=== PATIENT | female | born 1975 | race Caucasian/White ===

== ENCOUNTER 2017-04-23 13:11 | Emergency (ER) | payer SELFPAY ==
[2017-04-23 13:23] VITALS: BP 184/98
--- NOTE | 2017-04-23 15:02 | ER Document Report ---
ED Medical Screen (RME) - General Chief Complaint: Leg Pain Stated Complaint: RIGHT LEG PAIN Time Seen by Provider: 04/23/17 14:40 Mode of Arrival: Ambulatory Information source: Patient Notes: This is a 41-year-old female with right calf discomfort for the past 2 days. No history of trauma. She noticed veins on her calf and her friend told her this could be signs of a blood clot so she decided to come to the ER. She denies any fevers or chills. No systemic symptoms. No chest pain or shortness of breath. No prior history of thromboembolic disease. I have greeted and performed a rapid initial assessment of this patient. A comprehensive ED assessment and evaluation of the patient, analysis of test results and completion of the medical decision making process will be conducted by additional ED providers. TRAVEL OUTSIDE OF THE [place] IN LAST 30 DAYS: No - Related Data Allergies/Adverse Reactions: promethazine HCl [From Phenergan] Allergy (Verified 04/23/17 14:19) acetaminophen [From Tylenol] Adverse Reaction (Verified 04/23/17 14:19) upset stomach Past Medical History Endocrine Medical History: Reports: Hx Hypothyroidism Renal/ Medical History: Denies: Hx Peritoneal Dialysis Past Surgical History: Reports: Hx Appendectomy, Hx Breast Surgery, Hx Gynecologic Surgery - breast augmentation - Immunizations Hx Diphtheria, Pertussis, Tetanus Vaccination: Yes Physical Exam - Vital signs Vitals: Temp Pulse Resp BP Pulse Ox 98.5 F 73 18 184/98 H 99 04/23/17 13:22 04/23/17 13:22 04/23/17 13:22 04/23/17 13:22 04/23/17 13:22 Course - Vital Signs Vital signs: Temp Pulse Resp BP Pulse Ox 98.5 F 73 18 184/98 H 99 04/23/17 13:22 04/23/17 13:22 04/23/17 13:22 04/23/17 13:22 04/23/17 13:22
--- NOTE | 2017-04-23 18:57 | ER Document Report ---
ED Extremity Problem, Lower - General Chief Complaint: Leg Pain Stated Complaint: RIGHT LEG PAIN Time Seen by Provider: 04/23/17 14:40 Mode of Arrival: Ambulatory Information source: Patient Notes: 31-year-old female presents to ED for pain in the right calf for the last 2 days. She has what appears to be varicose veins to the right calf. She states that a friend told her that she should get checked that looked like for blood clot. She was seen in pit by Dr. Be and a venous Doppler was ordered and run. Patient does not have any risk factors for blood clots except for smoking. TRAVEL OUTSIDE OF THE [place] IN LAST 30 DAYS: No - HPI Patient complains to provider of: Pain Location: Leg Occurred: Other - 2 days Onset/Duration: Gradual Quality of pain: Burning Severity: Moderate Pain Level: 4 Recent injury: No Associated symptoms: Painful ambulation Exacerbated by: Nothing Relieved by: Nothing - Related Data Allergies/Adverse Reactions: promethazine HCl [From Phenergan] Allergy (Verified 04/23/17 14:19) acetaminophen [From Tylenol] Adverse Reaction (Verified 04/23/17 14:19) upset stomach Past Medical History - General Information source: Patient - Social History Smoking Status: Current Every Day Smoker Cigarette use (# per day): Yes - Pack per day Chew tobacco use (# tins/day): No Smoking Education Provided: Yes - Less than 2 minutes Frequency of alcohol use: Social Drug Abuse: None Occupation: None Lives with: Friend Family History: Arthritis, CAD, Hyperlipidemia, Hypertension, Thyroid Disfunction Patient has suicidal ideation: No Patient has homicidal ideation: No - Past Medical History Cardiac Medical History: Reports: None Pulmonary Medical History: Reports: Hx Asthma EENT Medical History: Reports: None Neurological Medical History: Reports: None Endocrine Medical History: Reports: Hx Hypothyroidism Renal/ Medical History: Reports: None Malignancy Medical History: Reports: None GI Medical History: Reports: None Musculoskeltal Medical History: Reports Hx Arthritis, Reports Hx Musculoskeletal Deformity, Reports Hx Musculoskeletal Trauma Skin Medical History: Reports None Psychiatric Medical History: Reports: None Traumatic Medical History: Reports: Hx Fractures - Spine pelvic and arm and leg , Hx Spine Fracture Infectious Medical History: Reports: None Past Surgical History: Reports: Hx Appendectomy, Hx Breast Surgery - Documentation, Hx Gynecologic Surgery - breast augmentation, Hx Orthopedic Surgery - Neck fusion lumbar area - Immunizations Hx Diphtheria, Pertussis, Tetanus Vaccination: Yes Hx Pneumococcal Vaccination: 08/11/13 Review of Systems - Review of Systems Constitutional: No symptoms reported EENT: No symptoms reported Cardiovascular: No symptoms reported Respiratory: No symptoms reported Gastrointestinal: No symptoms reported Genitourinary: No symptoms reported Female Genitourinary: No symptoms reported Musculoskeletal: Other - What appears to be varicose veins in the right calf Skin: Other - Engorged veins to the right calf Hematologic/Lymphatic: No symptoms reported Neurological/Psychological: No symptoms reported -: Yes All other systems reviewed and negative Physical Exam - Vital signs Vitals: Temp Pulse Resp BP Pulse Ox 98.5 F 73 18 184/98 H 99 04/23/17 13:22 04/23/17 13:22 04/23/17 13:22 04/23/17 13:22 04/23/17 13:22 Interpretation: Normal - General General appearance: Appears well, Alert - HEENT Head: Normocephalic, Atraumatic Eyes: Normal Pupils: PERRL - Respiratory Respiratory status: No respiratory distress Chest status: Nontender Breath sounds: Normal Chest palpation: Normal - Cardiovascular Rhythm: Regular Heart sounds: Normal auscultation Murmur: No - Abdominal Inspection: Normal Distension: No distension Bowel sounds: Normal Tenderness: Nontender Organomegaly: No organomegaly - Back Back: Normal, Nontender - Extremities General upper extremity: Normal inspection, Nontender, Normal color, Normal ROM , Normal temperature General lower extremity: Normal color, Normal ROM, Normal temperature, Normal weight bearing. No: Paul's sign Calf: Tender - Enlarged veins Ankle: Normal Foot: Normal - Neurological Neuro grossly intact: Yes Cognition: Normal Orientation: AAOx4 [place] Coma Scale Eye Opening: Spontaneous [place] Coma Scale Verbal: Oriented [place] Coma Scale Motor: Obeys Commands Mus[place] Coma Scale Total: 15 Speech: Normal Motor strength normal: LUE, RUE, LLE, RLE Sensory: Normal - Psychological Associated symptoms: Normal affect, Normal mood - Skin Skin Temperature: Warm Skin Moisture: Dry Skin Color: Normal Course - Re-evaluation Re-evalutation: 04/23/17 22:25 Patient needed to leave before her Doppler was read, the report was called to her at her home. - Vital Signs Vital signs: Temp Pulse Resp BP Pulse Ox 98.5 F 73 18 184/98 H 99 04/23/17 13:22 04/23/17 13:22 04/23/17 13:22 04/23/17 13:22 04/23/17 13:22 - Diagnostic Test Radiology reviewed: Image reviewed, Reports reviewed Discharge - Discharge Clinical Impression: Right calf pain, varicose veins right calf Condition: Stable Disposition: HOME, SELF-CARE Additional Instructions: He was seen today for pain and swelling to your right calf. Which you have look to be varicose veins. You had a venous Doppler but I have not gotten the reading yet. If you I will call you results as soon as I get them if you give me a phone number. Cool compresses and ibuprofen and compression stockings will help your pain. FOLLOW-UP CARE: If you have been referred to a physician for follow-up care, call the physician s office for an appointment as you were instructed or within the next two days. If you experience worsening or a significant change in your symptoms, notify the physician immediately or return to the Emergency Department at any time for re-evaluation. Referrals: LUIS CULLEN MD [Primary Care Provider] - Follow up as needed
--- NOTE | 2017-04-24 08:40 | XCELERA REPORT ---
[address] [address] Lower Extremity Venous Evaluation Name: CALISTA SLADE Age: 41 yrs Gender: Female : 1975 Patient Status: Emergency Patient Location: ER Study Date: 04/23/2017 03:14 PM Procedure: Color flow and duplex imaging of the veins of the right lower extremity as well as the left Common Femoral vein. Reason For Study: right calf pain Ordering Physician: FAYE MORALES Performed By: Megan Rodirgues Right Sided Venous Evaluation Normal vessel filling wall to wall, compression and augmentation as well as Colour flow down to the infrageniculate veins. Left Sided Venous Evaluation The left common femoral vein is fully compressible. Spontaneous and phasic flow is present in the left common femoral vein. Critical Findings Called in to ALEXANDRA Baker. Interpretation Summary No duplex evidence of DVT or obstruction in the right lower extremity nor in the left Common Femoral vein. : FAYE MORALES > Enoc Tellez
== END 2017-04-23 19:00 | disposition home or self-care (01) ==
LOC: ER 13:11
DX: I83.811 Varicose veins of right lower extremity with pain (principal); J45.909 Unspecified asthma, uncomplicated; F17.210 Nicotine dependence, cigarettes, uncomplicated; Z71.6 Tobacco abuse counseling; Z88.8 Allergy status to other drugs, medicaments and biological substances
CPT/HCPCS: 93971; 99283

== ENCOUNTER 2017-10-12 11:21 | Emergency (ER) | payer SELFPAY ==
[2017-10-12] MEDS ORDERED: NORMAL SALINE 1000 ML 1,000 ML IV ONE (11:33)
--- NOTE | 2017-10-12 11:53 | ER Document Report ---
ED General - General Stated Complaint: BLOOD PRESSURE ISSUE Time Seen by Provider: 10/12/17 11:32 TRAVEL OUTSIDE OF THE [place] IN LAST 30 DAYS: No - HPI Notes: Patient is a 42-year-old female with a history of hypoglycemia who presents the ED by EMS complaining of a hypoglycemic episode including a possible associated seizure that was witnessed by her boyfriend who is not currently in the ED. EMS stated that the boyfriend saw her clench up and have pedrito during the hypoglycemic evente shakes. EMS arrived and provided oral glucose and were able to get her sugar up to 83. Patient states that her sugar was down to around 39. Patient states that she does not remember the event at all until she woke up and so EMS there. Patient states that she did have a lingering headache, but that has since resolved. Patient does have a history of migraines. Patient states that she had a similar episode about a month ago and was evaluated by her PCM 3 weeks ago, but they just told her to continue checking her sugars and take Glucose if he gets too low. Patient states that she is feeling well overall right now. Patient denies having ever been worked up for possible seizure. She has no other concerns or complaints at this time. Patient admits to smoking but denies any IV drug use. Patient states that she did drink alcohol last night. Denies any fever, head injury, neck pain, changes in vision/speech/mentation/hearing, URI, sore throat, chest pain, palpitations, syncope, cough, shortness of breath, wheeze, dyspnea, abdominal pain, nausea/vomiting/diarrhea, urinary retention, dysuria, hematuria, loss of control of bowel or bladder, numbness/tingling, saddle anesthesia, muscle paralysis/weakness, or rash. - Related Data Allergies/Adverse Reactions: promethazine HCl [From Phenergan] Allergy (Verified 04/23/17 14:19) acetaminophen [From Tylenol] Adverse Reaction (Verified 04/23/17 14:19) upset stomach Past Medical History - Social History Smoking Status: Current Every Day Smoker Family History: Arthritis, CAD, Hyperlipidemia, Hypertension, Thyroid Disfunction Pulmonary Medical History: Reports: Hx Asthma Endocrine Medical History: Reports: Hx Hypothyroidism Renal/ Medical History: Denies: Hx Peritoneal Dialysis Musculoskeltal Medical History: Reports Hx Arthritis, Reports Hx Musculoskeletal Deformity, Reports Hx Musculoskeletal Trauma Traumatic Medical History: Reports: Hx Fractures - Spine pelvic and arm and leg , Hx Spine Fracture Past Surgical History: Reports: Hx Appendectomy, Hx Breast Surgery - Documentation, Hx Gynecologic Surgery - breast augmentation, Hx Orthopedic Surgery - Neck fusion lumbar area - Immunizations Hx Diphtheria, Pertussis, Tetanus Vaccination: Yes Hx Pneumococcal Vaccination: 08/11/13 Review of Systems - Review of Systems Notes: REVIEW OF SYSTEMS: CONSTITUTIONAL : Denies fever, chills, or sweats. Denies recent illness. EENT: Denies eye, ear, throat, or mouth pain or symptoms. Denies nasal or sinus congestion or discharge. Denies throat, tongue, or mouth swelling or difficulty swallowing. CARDIOVASCULAR: Denies chest pain. Denies palpitations or racing or irregular heart beat. Denies ankle edema. RESPIRATORY: Denies cough, cold, or chest congestion. Denies shortness of breath, difficulty breathing, or wheezing. GASTROINTESTINAL: Denies abdominal pain or distention. Denies nausea, vomiting , or diarrhea. GENITOURINARY: Denies difficulty urinating, painful urination, burning, frequency, blood in urine, or discharge. MUSCULOSKELETAL: Denies back or neck pain or stiffness. Denies joint pain or swelling. SKIN: Denies rash, lesions or sores. NEUROLOGICAL: see hpi. Denies confusion or altered mental status. Denies passing out or loss of consciousness. Denies dizziness or lightheadedness. Denies headache. Denies weakness or paralysis or loss of use of either side. Denies problems with gait or speech. Denies sensory loss, numbness, or tingling. ALL OTHER SYSTEMS REVIEWED AND NEGATIVE. Dictation was performed using [employer] voice recognition software Physical Exam - Vital signs Notes: PHYSICAL EXAMINATION: GENERAL: Well-appearing, well-nourished and in no acute distress. A&Ox4 HEAD: Atraumatic, normocephalic. Non-tender. No reardon sign EYES: Pupils equal round and reactive to light, extraocular movements intact, sclera anicteric, conjunctiva are normal. No raccoon eyes/entrapment ENT: EAC clear b/l. TM's intact b/l without erythema, fluid, or perforation. Nares patent and without discharge. oropharynx clear without exudates. No tonsilar hypertrophy or erythema. Moist mucous membranes. No sinus tenderness. No hemotympanum/CSF discharge. NECK: Normal range of motion, supple without lymphadenopathy. No rigidity. No midline tenderness. Spurling negative. NEXUS negative. LUNGS: Breath sounds clear to auscultation bilaterally and equal. No wheezes rales or rhonchi. HEART: Regular rate and rhythm without murmurs, rubs, gallops. ABDOMEN: Soft, nontender, nondistended abdomen. No guarding, no rebound. No masses appreciated. Normal bowel sounds present. No CVA tenderness bilaterally. Musculoskeletal: Ext b/l: FROM to passive/active. Strength 5+/5. No deficits noted. No bony tenderness of extremities. Back: FROM to passive/active. Strength 5+/5. No vertebral point tenderness, stepoffs, or deformities. No other bony tenderness or ecchymosis. SLR negative b/l. Extremities: No cyanosis, clubbing, or edema b/l. Peripheral pulses 2+. Capillary refill less than 2 seconds. NEUROLOGICAL: NIH 0. MMSE intact. Cranial nerves grossly intact. Normal speech, normal gait. Normal sensory, motor exams. Reflexes 2+ b/l. WARREN's negative. Pronator drift negative. Heel/house, finger/nose wnl. Walking on heels /toes and heel to toe wnl. PSYCH: Normal mood, normal affect. SKIN: Warm, Dry, normal turgor, no rashes or lesions noted. Course - Re-evaluation Re-evalutation: 10/12/17 13:21 Pt states she is feeling better and wants to go home. Reviewed case with Dr. Hyde. Patient is an afebrile, well-hydrated, 42-year-old female who presents the ED with a hypoglycemic event. Vitals are stable. PE is otherwise unremarkable for any focal neurological deficits. CT scan of the head was unremarkable for any acute pathology. CBC, CMP, magn, lipase, unremarkable for any acute pathology. ETOH 270 today which could have added to her hypoglycemia. UA did show + nitrites. Concern for chlamydia/violette. Dirty urine ordered, rocephin/zithromax given today. Recommend conservative measures for symptoms otherwise. [facility] Consider consult with a neurologist/e business manager. Return to the ED with any worsening/concerning symptoms otherwise as reviewed in discharge. Patient is in agreement. - Laboratory Result Diagrams: 10/12/17 12:02 11/19/17 12:02 Laboratory results interpreted by me: 10/12/17 10/12/17 10/12/17 11:50 12:02 12:02 RDW 14.5 H Seg Neutrophils % 29.3 L Lymphocytes % 45.2 H Monocytes % 15.3 H Eosinophils % 9.9 H Absolute Neutrophils 1.4 L Sodium 146.9 H AST 83 H ALT 57 H Total Protein 8.4 H Urine Nitrite POSITIVE H Discharge - Discharge Clinical Impression: Hypoglycemia Elevated ETOH level Qualifiers: Blood alcohol level: 240 mg/100 ml or more Qualified Code(s): Y90.8 - Blood alcohol level of 240 mg/100 ml or more Condition: Stable Disposition: HOME, SELF-CARE Instructions: Hypoglycemia ([facility]) Additional Instructions: Decrease alcohol intake Maintain adequate fluid intake (water) Monitor glucose levels closely Monitor for any acute changes in your symptoms Recheck with the [facility] this week Return to the ED with any worsening symptoms and/or development of fever, headache, changes in mentation/behavior/speech/vision, chest pain, palpitations , syncope, shortness of breath, trouble breathing, abdominal pain, n/v/d, blood in stool/urine, loss of control of bowel/bladder, urinary retention, muscle weakness/paralysis, saddle anesthesia, numbness/tingling, or other worsening symptoms that are concerning to you. Referrals: [facility] [Provider Group] - Follow up in 3-5 days
[2017-10-12 12:23] LABS: APPEARANCE,URINE CLEAR; BILIRUBIN,URINE NEGATIVE (NEGATIVE); GLUCOSE, URINE NEGATIVE (NEGATIVE); KETONES,URINE NEGATIVE (NEGATIVE); LEUKOCYTE ESTERASE,URINE NEGATIVE (NEGATIVE); NITRITE,URINE POSITIVE (NEGATIVE); PROTEIN,URINE NEGATIVE (NEGATIVE); URINE SPECIFIC GRAVITY 1.004; UROBILINOGEN,URINE NEGATIVE mg/dL (<2.0)
[2017-10-12 12:26] LABS: ABSOLUTE EOSINOPHILS # (AUTO) 0.5 10^3/uL (0.0-0.6); ABSOLUTE LYMPHOCYTES (AUTO) 2.1 10^3/uL (0.5-4.7); ABSOLUTE MONOCYTES (AUTO) 0.7 10^3/uL (0.1-1.4); ABSOLUTE NEUT (AUTO) 1.4 10^3/uL (1.7-8.2); BASOPHILS % (AUTO) 0.3 % (0-2); EOSINOPHILS % (AUTO) 9.9 % (0-6); HEMATOCRIT 39.8 % (36.0-47.0); HEMOGLOBIN 13.7 g/dL (12.0-15.5); HGB HCT DIFFERENCE 1.3; LYMPHOCYTES % (AUTO) 45.2 % (13-45); MEAN CORPUSCULAR HEMOGLOBIN 32.2 pg (27.0-33.4); MEAN CORPUSCULAR HGB CONC 34.4 g/dL (32.0-36.0); MEAN CORPUSCULAR VOLUME 94 fl (80-97); MONOCYTES % (AUTO) 15.3 % (3-13); RED BLOOD COUNT 4.25 10^6/uL (3.72-5.28); RED CELL DISTRIBUTION WIDTH 14.5 % (11.5-14.0); SEGMENTED NEUTROPHILS % (AUTO) 29.3 % (42-78); WHITE BLOOD COUNT 4.6 10^3/uL (4.0-10.5)
--- NOTE | 2017-10-12 12:42 | RADIOLOGY REPORT (SQ) ---
EXAM DESCRIPTION: CT HEAD WITHOUT COMPLETED DATE/TIME: 10/12/2017 12:28 pm REASON FOR STUDY: possible seizure COMPARISON: 06/06/2014. TECHNIQUE: Axial images acquired through the brain without intravenous contrast. Images reviewed wi th bone, brain and subdural windows. Images stored on PACS. All CT scanners at this facility use dose modulation, iterative reconstruction, and/or weight based d osing when appropriate to reduce radiation dose to as low as reasonably achievable (ALARA). [facility]: Dose Right [facility]: CareDose [facility]: Dose Right [facility]: Teradose 4D [facility]: Smart Lanyrd RADIATION DOSE: Up-to-date CT equipment and radiation dose reduction techniques were employed. CTDIv ol: 49.0 mGy. DLP: 881 mGy-cm. mGy. LIMITATIONS: None. FINDINGS: VENTRICLES: Normal size and contour. CEREBRUM: No masses. No hemorrhage. No midline shift. No evidence for acute infarction. Normal gra y/white matter differentiation. No areas of low density in the white matter. CEREBELLUM: No masses. No hemorrhage. No alteration of density. No evidence for acute infarction. EXTRAAXIAL SPACES: No fluid collections. No masses. ORBITS AND GLOBE: No intra- or extraconal masses. Normal contour of globe without masses. CALVARIUM: No fracture. PARANASAL SINUSES: No fluid or mucosal thickening. SOFT TISSUES: No mass or hematoma. OTHER: No other significant finding. IMPRESSION: NORMAL BRAIN CT WITHOUT CONTRAST. EVIDENCE OF ACUTE STROKE: NO. COMMENT: Quality ID # [id number]: Final reports with documentation of one or more dose reduction techniques (e.g., Automated exposure control, adjustment of the mA and/or kV according to patient size, use of iterative reconstruction technique) TECHNICAL DOCUMENTATION: JOB ID: [id number] [employer]- All Rights Reserved
[2017-10-12 12:43] LABS: ALANINE AMINOTRANSFERASE 57 U/L (9-52); ALBUMIN 4.5 g/dL (3.5-5.0); ALCOHOL 270 mg/dL (NONE DETECTED); ALKALINE PHOSPHATASE 87 U/L (38-126); ANION GAP 14 (5-19); ASPARTATE AMINO TRANSFERASE 83 U/L (14-36); BILIRUBIN,DIRECT 0.4 mg/dL (0.0-0.4); BILIRUBIN,TOTAL 0.4 mg/dL (0.2-1.3); BLOOD UREA NITROGEN 7 mg/dL (7-20); CALCIUM 9.2 mg/dL (8.4-10.2); CARBON DIOXIDE 29 mmol/L (22-30); CHLORIDE 104 mmol/L (98-107); CREATININE RESULT 0.77 mg/dL (0.52-1.25); GLUCOSE 98 mg/dL (75-110); MAGNESIUM 1.7 mg/dL (1.6-2.3); POTASSIUM 4.2 mmol/L (3.6-5.0); SODIUM 146.9 mmol/L (137-145); TOTAL PROTEIN 8.4 g/dL (6.3-8.2)
[2017-10-12] MEDS ORDERED: AZITHROMYCIN 250 MG TABLET PO ONE (13:20)
[2017-10-12] MEDS ORDERED: CEFTRIAXONE INJ 250 MG VIAL IM ONE ×2 (13:20→13:21)
[2017-10-12] MEDS ORDERED: LIDOCAINE 1% INJ-PF (10 MG/ML) 30 ML SDV INJ ONE ×2 (13:21→13:29)
[2017-10-12] MEDS ORDERED: CEFTRIAXONE INJ 250 MG VIAL IV ONE (13:29)
[2017-10-12 15:24] LABS: CHLAM PCR NOT DETECTED (NOT DETECT)
[2017-10-12 15:35] VITALS: BP 137/95
== END 2017-10-12 15:34 | disposition home or self-care (01) ==
LOC: ER 11:21
DX: E16.2 Hypoglycemia, unspecified (principal); R56.9 Unspecified convulsions; R51 Headache; Z72.89 Other problems related to lifestyle; Y90.8 Blood alcohol level of 240 mg/100 ml or more
CPT/HCPCS: 99284; 96361; 96374; 36415; 80307; 84702; 83735; 85025; 80053; 81001; 87491; 87591; 70450; J3490; J7030; J0696

== ENCOUNTER 2018-06-21 14:20 | Inpatient (IN) | payer OTHER ==
[2018-06-21] MEDS ORDERED: NORMAL SALINE 1000 ML 1,000 ML IV ONE ×2 (14:53→18:28)
[2018-06-21] MEDS ORDERED: MORPHINE SULFATE 10 MG/ML INJ IV ONE (14:53)
--- NOTE | 2018-06-21 14:56 | ER Document Report ---
ED Medical Screen (RME) - General Chief Complaint: Chest Pain Stated Complaint: CHEST PAIN,NAUSEA,VOMITING Time Seen by Provider: 06/21/18 14:49 Mode of Arrival: Ambulatory Information source: Patient Notes: 43-year-old female with a history of hypertension and arthritis presents to the emergency room nausea, vomiting and acute epigastric pain. She denies blood in the vomitus. Patient denies fever, diarrhea, blood in the stool. Patient denies history of kidney stones/gallstones. Allergies: Phenergan, Tylenol [place]'s: Voltaren/blood pressure medicine Past surgical history: Appendectomy Last normal menstrual period 2 weeks ago TRAVEL OUTSIDE OF THE [place] IN LAST 30 DAYS: No - Related Data Allergies/Adverse Reactions: promethazine HCl [From Phenergan] Allergy (Verified 06/21/18 14:22) acetaminophen [From Tylenol] Adverse Reaction (Verified 06/21/18 14:22) upset stomach Past Medical History - Social History Chew tobacco use (# tins/day): No Frequency of alcohol use: Social Drug Abuse: None Pulmonary Medical History: Reports: Hx Asthma Endocrine Medical History: Reports: Hx Hypothyroidism Renal/ Medical History: Denies: Hx Peritoneal Dialysis Musculoskeltal Medical History: Reports Hx Arthritis, Reports Hx Musculoskeletal Deformity, Reports Hx Musculoskeletal Trauma Traumatic Medical History: Reports: Hx Fractures - Spine pelvic and arm and leg , Hx Spine Fracture Past Surgical History: Reports: Hx Appendectomy, Hx Breast Surgery - Documentation, Hx Gynecologic Surgery - breast augmentation, Hx Orthopedic Surgery - Neck fusion lumbar area - Immunizations Hx Diphtheria, Pertussis, Tetanus Vaccination: Yes Physical Exam - Vital signs Vitals: Temp Pulse Resp BP Pulse Ox 97.6 F 73 16 129/77 H 100 06/21/18 14:38 06/21/18 14:38 06/21/18 14:38 06/21/18 14:38 06/21/18 14:38 Course - Vital Signs Vital signs: Temp Pulse Resp BP Pulse Ox 97.6 F 73 16 129/77 H 100 06/21/18 14:38 06/21/18 14:38 06/21/18 14:38 06/21/18 14:38 06/21/18 14:38
--- NOTE | 2018-06-21 16:04 | RADIOLOGY REPORT (SQ) ---
EXAM DESCRIPTION: U/S ABDOMEN LIMITED W/O DOP COMPLETED DATE/TIME: 06/21/2018 3:55 pm REASON FOR STUDY: upper abdominal pain r/o gb disease COMPARISON: None. TECHNIQUE: Dynamic and static grayscale images acquired of the abdomen and recorded on PACS. Additio nal selected color Doppler and spectral images recorded. LIMITATIONS: Study terminated because of patient's pain FINDINGS: PANCREAS: No masses. Visualized pancreatic duct normal caliber. LIVER: No masses. Echotexture normal. LIVER VASCULATURE: Not evaluated GALLBLADDER: Limited. No obvious stones. ULTRASOUND-DETECTED HUNTER'S SIGN: Positive. INTRAHEPATIC DUCTS AND COMMON DUCT: CBD and intrahepatic ducts normal caliber. No filling defects. INFERIOR VENA CAVA: Normal flow. AORTA: No aneurysm. RIGHT KIDNEY: Normal size. Normal echogenicity. No solid or suspicious masses. No hydronephrosis. No calcifications. PERITONEAL AND RIGHT PLEURAL SPACE: No ascites or effusions. OTHER: No other significant findings. IMPRESSION: No obvious stones noted. Exam terminated prior to completion because of patient's pain. . TECHNICAL DOCUMENTATION: JOB ID: [id number] [employer]- All Rights Reserved Reading location - IP/workstation name: [email or web address]
[2018-06-21] MEDS ORDERED: METOCLOPRAMIDE HCL INJ/PF 10 MG/2 ML SDV IV ONE (16:10)
[2018-06-21 16:14] LABS: ABSOLUTE BASOPHILS # (AUTO) 0.1 10^3/uL (0.0-0.2); ABSOLUTE LYMPHOCYTES (AUTO) 0.6 10^3/uL (0.5-4.7); ABSOLUTE MONOCYTES (AUTO) 0.9 10^3/uL (0.1-1.4); ABSOLUTE NEUT (AUTO) 8.3 10^3/uL (1.7-8.2); BASOPHILS % (AUTO) 0.6 % (0-2); EOSINOPHILS % (AUTO) 0.1 % (0-6); HEMATOCRIT 40.6 % (36.0-47.0); HEMOGLOBIN 13.9 g/dL (12.0-15.5); LYMPHOCYTES % (AUTO) 6.5 % (13-45); MEAN CORPUSCULAR HEMOGLOBIN 30.5 pg (27.0-33.4); MEAN CORPUSCULAR HGB CONC 34.3 g/dL (32.0-36.0); MEAN CORPUSCULAR VOLUME 89 fl (80-97); MONOCYTES % (AUTO) 9.3 % (3-13); PLATELET COUNT 180 10^3/uL (150-450); RED BLOOD COUNT 4.56 10^6/uL (3.72-5.28); RED CELL DISTRIBUTION WIDTH 17.2 % (11.5-14.0); SEGMENTED NEUTROPHILS % (AUTO) 83.5 % (42-78); TOTAL CELLS COUNTED % (AUTO) 100 %
--- NOTE | 2018-06-21 16:14 | ER Document Report ---
ED General - General Chief Complaint: Chest Pain Stated Complaint: CHEST PAIN,NAUSEA,VOMITING Time Seen by Provider: 06/21/18 14:49 Mode of Arrival: Ambulatory TRAVEL OUTSIDE OF THE [place] IN LAST 30 DAYS: No - HPI Notes: Patient is a 43-year-old female no significant past medical history presents to the ED complaining of epigastric pain 1 day. Patient states that the pain does not radiate. Patient states that she has not been eating or drinking because of the pain. She has had some nausea and vomiting associated. She states that she is still urinating normally and having normal bowel movements. She has not had any vaginal discharge, bleeding, or odor. Previous or surgical history of an appendectomy. No other recent illness. She has not had any melena or hematochezia. No hematemesis. Denies any headache, fever, neck pain , URI, sore throat, chest pain, palpitations, syncope, cough, shortness of breath, wheeze, dyspnea, diarrhea, urinary retention, dysuria, hematuria, back pain, loss of control of bowel or bladder, numbness/tingling, or rash. - Related Data Allergies/Adverse Reactions: promethazine HCl [From Phenergan] Allergy (Verified 06/21/18 14:22) shellfish derived Allergy (Verified 06/21/18 17:48) acetaminophen [From Tylenol] Adverse Reaction (Verified 06/21/18 14:22) upset stomach Past Medical History - General Information source: Patient - Social History Smoking Status: Current Every Day Smoker Chew tobacco use (# tins/day): No Frequency of alcohol use: Social Drug Abuse: None Family History: Arthritis, CAD, Hyperlipidemia, Hypertension, Thyroid Disfunction Patient has suicidal ideation: No Patient has homicidal ideation: No Pulmonary Medical History: Reports: Hx Asthma Endocrine Medical History: Reports: Hx Hypothyroidism Renal/ Medical History: Denies: Hx Peritoneal Dialysis Musculoskeletal Medical History: Reports Hx Arthritis, Reports Hx Musculoskeletal Deformity, Reports Hx Musculoskeletal Trauma Traumatic Medical History: Reports: Hx Fractures - Spine pelvic and arm and leg , Hx Spine Fracture Past Surgical History: Reports: Hx Appendectomy, Hx Breast Surgery - Documentation, Hx Gynecologic Surgery - breast augmentation, Hx Orthopedic Surgery - Neck fusion lumbar area - Immunizations Hx Diphtheria, Pertussis, Tetanus Vaccination: Yes Hx Pneumococcal Vaccination: 08/11/13 Review of Systems - Review of Systems -: Yes All other systems reviewed and negative Physical Exam - Vital signs Vitals: Temp Pulse Resp BP Pulse Ox 97.6 F 73 16 129/77 H 100 06/21/18 14:38 06/21/18 14:38 06/21/18 14:38 06/21/18 14:38 06/21/18 14:38 - Notes Notes: PHYSICAL EXAMINATION: GENERAL: Well-appearing, well-nourished and in no acute distress. HEAD: Atraumatic, normocephalic. EYES: Pupils equal round and reactive to light, extraocular movements intact, sclera anicteric, conjunctiva are normal. ENT: Nares patent and without discharge. oropharynx clear without exudates. No tonsilar hypertrophy or erythema. Moist mucous membranes. NECK: Normal range of motion, supple without lymphadenopathy LUNGS: Breath sounds clear to auscultation bilaterally and equal. No wheezes rales or rhonchi. HEART: Regular rate and rhythm without murmurs, rubs, gallops. ABDOMEN: Soft, nondistended abdomen. No guarding, no rebound. No masses appreciated. Normal bowel sounds present. No CVA tenderness bilaterally. + epigastric tenderness, correlates with pain described. Dupree negative. Musculoskeletal: FROM to passive/active. Strength 5+/5. Extremities: No cyanosis, clubbing, or edema b/l. Peripheral pulses 2+. Capillary refill less than 3 seconds. NEUROLOGICAL: Cranial nerves grossly intact. Normal speech, normal gait. PSYCH: Normal mood, normal affect. SKIN: Warm, Dry, normal turgor, no rashes or lesions noted. Course - Re-evaluation Re-evalutation: 06/21/18 17:51 Patient is an afebrile, well-hydrated, 43-year-old female who presents to the ED with pancreatitis, suspect alcohol induced based on her H&P today and alcohol level. Vitals are acceptable without significant tachycardia, tachypnea , or hypoxia. PE is otherwise unremarkable. CBC unremarkable for acute pathology. CMP shows minimally elevated LFTs without any bilirubin increase and negative Dupree sign on exam. Lipase is elevated greater than 7500. Patient has been given fluids, Dilaudid, and Zofran. She also received Solu- Medrol, Benadryl, and Pepcid prior to CT as she states that she is allergic to the contrast. CT scan is pending. I did review this case with Dr. Wills who accepted patient to medical floor. - Vital Signs Vital signs: Temp Pulse Resp BP Pulse Ox 97.6 F 73 16 129/77 H 100 06/21/18 14:38 06/21/18 14:38 06/21/18 14:38 06/21/18 14:38 06/21/18 14:38 - Laboratory Result Diagrams: 06/21/18 16:01 06/21/18 16:55 Laboratory results interpreted by me: 06/21/18 06/21/18 16:01 16:55 RDW 17.2 H Seg Neutrophils % 83.5 H Lymphocytes % 6.5 L Absolute Neutrophils 8.3 H Potassium 3.5 L AST 133 H ALT 63 H Lipase 7570.1 H Discharge - Discharge Clinical Impression: Acute alcoholic pancreatitis Qualifiers: Acute pancreatitis complication: unspecified Qualified Code(s): K85.20 - Alcohol induced acute pancreatitis without necrosis or infection Condition: Stable Disposition: ADMITTED INPATIENT Admitting Provider: Hospitalist - Dr. Wills Unit Admitted: Medical Floor
[2018-06-21] MEDS ORDERED: ONDANSETRON HCL INJ/PF 4 MG/2 ML SDV IV ONE (16:25)
[2018-06-21] MEDS ORDERED: HYDROMORPHONE HCL INJ/PF 2 MG/ML AMPULE IV ONE (16:38)
[2018-06-21] MEDS ORDERED: METOCLOPRAMIDE HCL ORAL SOLN 10 MG/10 ML UDCUP PO ONE (16:39)
[2018-06-21] MEDS ORDERED: LIDOCAINE 2% VISCOUS SOLN 20 ML UDCUP PO ONE (16:39)
[2018-06-21] MEDS ORDERED: MAG HYDROX/AL HYDROX/SIMETH SUSP 30 ML UDCUP PO ONE (16:39)
[2018-06-21 17:22] LABS: ALANINE AMINOTRANSFERASE 63 U/L (9-52); ALCOHOL 87 mg/dL (NONE DETECTED); ALKALINE PHOSPHATASE 97 U/L (38-126); ANION GAP 19 (5-19); ASPARTATE AMINO TRANSFERASE 133 U/L (14-36); BILIRUBIN,DIRECT 0.4 mg/dL (0.0-0.4); BILIRUBIN,TOTAL 0.7 mg/dL (0.2-1.3); BLOOD UREA NITROGEN 8 mg/dL (7-20); CALCIUM 9.3 mg/dL (8.4-10.2); CARBON DIOXIDE 23 mmol/L (22-30); CHLORIDE 101 mmol/L (98-107); GLUCOSE 88 mg/dL (75-110); POTASSIUM 3.5 mmol/L (3.6-5.0); SODIUM 142.8 mmol/L (137-145); TOTAL PROTEIN 7.4 g/dL (6.3-8.2)
[2018-06-21 17:41] LABS: LIPASE 7570.1 U/L (23-300)
[2018-06-21] MEDS ORDERED: FAMOTIDINE INJ/PF 20 MG/2 ML SDV IV ONE (17:43)
[2018-06-21] MEDS ORDERED: DIPHENHYDRAMINE HCL 50 MG/ML VIAL IV ONE (17:43)
[2018-06-21] MEDS ORDERED: METHYLPREDNISOLONE INJ 125 MG/2 ML SDV IV ONE (17:43)
[2018-06-21] MEDS ORDERED: DEXTROSE 40% GEL 15 GM TUBE PO PRN ×2 (18:09)
[2018-06-21] MEDS ORDERED: GLUCAGON,HUMAN RECOMB 1 MG INJ SUBCUT PRN (18:09)
[2018-06-21] MEDS ORDERED: DEXTROSE 50%-WATER 25 GM/50 ML DISP.SYRIN IV PRN ×2 (18:09)
[2018-06-21] MEDS ORDERED: IPRATROPIUM/ALBUTEROL 0.5-2.5 MG/3 ML AMPUL NEB PRN (18:09)
--- NOTE | 2018-06-21 18:32 | EKG REPORT ---
SEVERITY:- ABNORMAL ECG - SINUS RHYTHM SHORT DC INTERVAL, ACCELERATED AV CONDUCTION NONSPECIFIC T ABNORMALITIES, ANTERIOR LEADS BORDERLINE PROLONGED QT INTERVAL : Confirmed by: Kate Santillan MD 21-Jun-2018 18:31:42
--- NOTE | 2018-06-21 18:39 | RADIOLOGY REPORT (SQ) ---
EXAM DESCRIPTION: CHEST 2 VIEWS COMPLETED DATE/TIME: 06/21/2018 6:26 pm REASON FOR STUDY: epigastric pain COMPARISON: None. EXAM PARAMETERS: NUMBER OF VIEWS: two views TECHNIQUE: Digital Frontal and Lateral radiographic views of the chest acquired. RADIATION DOSE: NA LIMITATIONS: none FINDINGS: LUNGS AND PLEURA: No opacities, masses or pneumothorax. No pleural effusion. MEDIASTINUM AND HILAR STRUCTURES: No masses or contour abnormalities. HEART AND VASCULAR STRUCTURES: Heart normal size. No evidence for failure. BONES: No acute findings. HARDWARE: None in the chest. OTHER: No other significant finding. IMPRESSION: NO ACUTE RADIOGRAPHIC FINDING IN THE CHEST. TECHNICAL DOCUMENTATION: JOB ID: [id number] [place]-72 2010 [employer]- All Rights Reserved Reading location - IP/workstation name: [email or web address]
--- NOTE | 2018-06-21 18:42 | PDOC H&P ---
History of Present Illness Admission Date/PCP: 06/21/18 18:03 MARK GARCIA Patient complains of: Abdominal pain, nausea and vomiting x1day History of Present Illness: CALISTA SLADE is a 43 year old female who presents to the ED with abdominal pain, nausea and vomiting. She was found to have acute pancreatitis. She drinks 1/5th of liquor- gin, vodka daily, last drink was last night. She denies any bleeding, or any history of alcohol withdrawal. She says she has been drinking alcohol 'for a long time'. She also smokes about a pack of cigarette daily. She says her father and uncle also have history of alcohol abuse she is currently unemployed and on disability from the [employer] due to back pain Past Medical History Pulmonary Medical History: Reports: Asthma Endocrine Medical History: Reports: Hypothyroidism Musculoskeltal Medical History: Reports: Arthritis Past Surgical History Past Surgical History: Reports: Appendectomy, Orthopedic Surgery - Neck fusion lumbar area Social History Information Source: Patient Smoking Status: Current Every Day Smoker Frequency of Alcohol Use: Heavy Last Alcohol Use: 06/20/18 Hx Recreational Drug Use: No Drugs: None - Advance Directive Resuscitation Status: Full Code Family History Family History: Arthritis, CAD, Hyperlipidemia, Hypertension, Thyroid Disfunction Parental Family History Reviewed: Yes Children Family History Reviewed: Yes Sibling(s) Family History Reviewed.: Yes Medication/Allergy Home Medications: Amlodipine Besylate [Norvasc 5 mg Tablet] 5 mg PO DAILY 06/22/18 Diclofenac Sodium [Voltaren] 75 mg PO BIDP PRN 06/22/18 Sertraline HCl [Zoloft 50 mg Tablet] 50 mg PO DAILY 06/22/18 Allergies/Adverse Reactions: promethazine HCl [From Phenergan] Allergy (Verified 06/21/18 14:22) shellfish derived Allergy (Verified 06/21/18 17:48) acetaminophen [From Tylenol] Adverse Reaction (Verified 06/21/18 14:22) upset stomach Review of Systems All systems: reviewed and no additional remarkable complaints except as stated Physical Exam Vital Signs: Temp Pulse Resp BP Pulse Ox 97.6 F 73 16 129/77 H 100 06/21/18 14:38 06/21/18 14:38 06/21/18 14:38 06/21/18 14:38 06/21/18 14:38 Intake & Output 06/20/18 06/21/18 06/22/18 06:59 06:59 06:59 Intake Total 1000 Balance 1000 General appearance: PRESENT: no acute distress, thin, well-nourished Head exam: PRESENT: atraumatic, normocephalic Eye exam: PRESENT: conjunctiva pink, EOMI, PERRLA. ABSENT: scleral icterus Ear exam: PRESENT: normal external ear exam Mouth exam: PRESENT: moist, tongue midline Neck exam: ABSENT: carotid bruit, JVD, lymphadenopathy, thyromegaly Respiratory exam: PRESENT: clear to auscultation enrrique. ABSENT: rales, rhonchi, wheezes Cardiovascular exam: PRESENT: RRR. ABSENT: diastolic murmur, rubs, systolic murmur Pulses: PRESENT: normal dorsalis pedis pul Vascular exam: PRESENT: normal capillary refill GI/Abdominal exam: PRESENT: normal bowel sounds, soft. ABSENT: distended, guarding, mass, organolmegaly, rebound, tenderness Rectal exam: PRESENT: deferred Extremities exam: PRESENT: full ROM. ABSENT: calf tenderness, clubbing, pedal edema Neurological exam: PRESENT: alert, awake, oriented to person, oriented to place , oriented to time, oriented to situation, CN II-XII grossly intact. ABSENT: motor sensory deficit Psychiatric exam: PRESENT: appropriate affect, normal mood. ABSENT: homicidal ideation, suicidal ideation Skin exam: PRESENT: dry, intact, warm. ABSENT: cyanosis, rash Results Laboratory Results: 06/21/18 06/21/18 16:01 16:55 RDW 17.2 H Seg Neutrophils % 83.5 H Lymphocytes % 6.5 L Absolute Neutrophils 8.3 H Potassium 3.5 L AST 133 H ALT 63 H Lipase 7570.1 H 06/21/18 06/21/18 16:01 16:55 RDW 17.2 H Seg Neutrophils % 83.5 H Lymphocytes % 6.5 L Absolute Neutrophils 8.3 H Potassium 3.5 L AST 133 H ALT 63 H Lipase 7570.1 H Impressions: Abdomen Ultrasound 06/21/18 14:56 IMPRESSION: No obvious stones noted. Exam terminated prior to completion because of patient's pain. . Assessment & Plan - Diagnosis (1) Acute alcoholic pancreatitis Qualifiers: Acute pancreatitis complication: unspecified Qualified Code(s): K85.20 - Alcohol induced acute pancreatitis without necrosis or infection Is this a current diagnosis for this admission?: Yes (2) Alcohol abuse Is this a current diagnosis for this admission?: Yes - Time Time Spent: 30 to 50 Minutes Medications reviewed and adjusted accordingly: Yes Anticipated discharge: Home Within: within 72 hours - Inpatient Certification Based on my medical assessment, after consideration of the patient's comorbidities, presenting symptoms, or acuity I expect that the services needed warrant INPATIENT care.: Yes Medical Necessity: Need For IV Fluids, Need for Pain Control
--- NOTE | 2018-06-21 18:44 | RADIOLOGY REPORT (SQ) ---
EXAM DESCRIPTION: CT ABD/PELVIS WITH IV ONLY COMPLETED DATE/TIME: 06/21/2018 6:21 pm REASON FOR STUDY: epigastric pain COMPARISON: None. TECHNIQUE: CT scan of the abdomen and pelvis performed using helical scanning technique with dynamic intravenous contrast injection. No oral contrast. Images reviewed with lung, soft tissue, and bone windows. Reconstructed coronal and sagittal MPR images reviewed. Delayed images for evaluation of the urinary system also acquired. All images stored on PACS. All CT scanners at this facility use dose modulation, iterative reconstruction, and/or weight based d osing when appropriate to reduce radiation dose to as low as reasonably achievable (ALARA). [facility]: Dose Right [facility]: CareDose [facility]: Dose Right [facility]: Teradose 4D [facility]: [employer] CONTRAST TYPE AND DOSE: contrast/concentration: Isovue 370.00 mg/ml; Total Contrast Delivered: 100.0 ml; Total Saline Delivered: 72.0 ml RENAL FUNCTION: GFR > 60. RADIATION DOSE: CT Rad equipment meets quality standard of care and radiation dose reduction techniq ues were employed. CTDIvol: 4.8 - 4.9 mGy. DLP: 522 mGy-cm.. LIMITATIONS: None. FINDINGS: LOWER CHEST: No significant findings. No nodules or infiltrates. LIVER: Normal size. Diffuse fatty infiltration. No enhancing masses. No dilated ducts. SPLEEN: Normal size. No focal lesions. PANCREAS: No significant calcifications. Severe adjacent inflammation -free-fluid. Pancreatic duct not dilated. GALLBLADDER: No identified stones by CT criteria. No inflammatory changes to suggest cholecystitis. ADRENAL GLANDS: No significant masses or asymmetry. RIGHT KIDNEY AND URETER: No solid masses. No significant calcifications. No hydronephrosis or hyd roureter. LEFT KIDNEY AND URETER: No solid masses. No significant calcifications. No hydronephrosis or hydr oureter. AORTA AND VESSELS: No aneurysm. No dissection. Renal arteries, SMA, celiac without stenosis. RETROPERITONEUM: Large amount of upper retroperitoneal free fluid. No bulky retroperitoneal adenopat hy. BOWEL AND PERITONEAL CAVITY: No obstruction. APPENDIX: Surgically absent. PELVIS: Small amount of free fluid. Normal bladder. ABDOMINAL WALL: No masses. No hernias. BONES: No acute findings. OTHER: No other significant finding. IMPRESSION: Large amount of peripancreatic inflammatory changes -left upper quadrant free fluid, cor relate for pancreatitis. TECHNICAL DOCUMENTATION: JOB ID: [id number] Quality ID # [id number]: Final reports with documentation of one or more dose reduction techniques (e.g., Au tomated exposure control, adjustment of the mA and/or kV according to patient size, use of iterative reconstruction technique) 2010 [employer]- All Rights Reserved Reading location - IP/workstation name: [email or web address]
[2018-06-21] MEDS: HYDROMORPHONE HCL INJ/PF 2 MG/ML AMPULE IV PRN (21:29)
[2018-06-21] MEDS: FAMOTIDINE INJ/PF 20 MG/2 ML SDV IV SCH (21:51)
[2018-06-21] MEDS: DEXTROSE 5%-NORMAL SALINE 1,000 ML IV PRN (21:52)
[2018-06-21] MEDS: LORAZEPAM INJ 2 MG/1 ML VIAL IV PRN (22:11)
[2018-06-22] MEDS: ONDANSETRON HCL INJ/PF 4 MG/2 ML SDV IV PRN ×4 (00:09→18:55)
[2018-06-22] MEDS: HYDROMORPHONE HCL INJ/PF 2 MG/ML AMPULE IV PRN ×6 (01:46→23:04)
[2018-06-22 01:55] LABS: APPEARANCE,URINE CLEAR; BILIRUBIN,URINE NEGATIVE (NEGATIVE); COLOR,URINE AMBER; GLUCOSE, URINE NEGATIVE (NEGATIVE); KETONES,URINE TRACE mg/dL (NEGATIVE); LEUKOCYTE ESTERASE,URINE NEGATIVE (NEGATIVE); NITRITE,URINE POSITIVE (NEGATIVE); PROTEIN,URINE NEGATIVE (NEGATIVE); URINE SPECIFIC GRAVITY 1.042
[2018-06-22] MEDS: LORAZEPAM INJ 2 MG/1 ML VIAL IV PRN ×3 (03:29→20:07)
[2018-06-22 04:53] LABS: HEMATOCRIT 35.5 % (36.0-47.0); MEAN CORPUSCULAR HEMOGLOBIN 30.2 pg (27.0-33.4); MEAN CORPUSCULAR HGB CONC 33.8 g/dL (32.0-36.0); MEAN CORPUSCULAR VOLUME 89 fl (80-97); PLATELET COUNT 125 10^3/uL (150-450); RED BLOOD COUNT 3.97 10^6/uL (3.72-5.28); RED CELL DISTRIBUTION WIDTH 17.4 % (11.5-14.0); WHITE BLOOD COUNT 5.1 10^3/uL (4.0-10.5)
[2018-06-22 05:13] LABS: ALANINE AMINOTRANSFERASE 55 U/L (9-52); ALBUMIN 3.3 g/dL (3.5-5.0); ALKALINE PHOSPHATASE 84 U/L (38-126); ANION GAP 14 (5-19); ASPARTATE AMINO TRANSFERASE 105 U/L (14-36); BILIRUBIN,DIRECT 0.3 mg/dL (0.0-0.4); BILIRUBIN,TOTAL 0.7 mg/dL (0.2-1.3); BLOOD UREA NITROGEN 8 mg/dL (7-20); CALCIUM 8.5 mg/dL (8.4-10.2); CARBON DIOXIDE 22 mmol/L (22-30); CHLORIDE 102 mmol/L (98-107); GLUCOSE 196 mg/dL (75-110); SODIUM 138.4 mmol/L (137-145); TOTAL PROTEIN 6.7 g/dL (6.3-8.2)
[2018-06-22 05:47] LABS: LIPASE 4805.9 U/L (23-300)
[2018-06-22] MEDS: MAGNESIUM SULFATE 1 GM/D5W 100 ML IV SCH ×2 (06:12→09:48)
[2018-06-22] MEDS: DEXTROSE 5%-NORMAL SALINE 1,000 ML IV PRN ×3 (06:12→23:05)
[2018-06-22] MEDS: FAMOTIDINE INJ/PF 20 MG/2 ML SDV IV SCH ×2 (09:49→21:10)
[2018-06-22] MEDS: ENOXAPARIN SODIUM INJ 40 MG/0.4 ML DISP.SYRIN SUBCUT SCH (09:50)
--- NOTE | 2018-06-22 12:15 | PDOC PROGRESS REPORT ---
Subjective Progress Note for:: 06/22/18 Subjective:: Ms. Torres feels better this morning although still complaining of abdominal pain. She says she has not really noticed any withdrawal symptoms but her last drink was just about 36 hours ago so she is really not out of the window yet. Her lipase is down to 4800 from 7500. Will keep n.p.o. for now until her lipase improves. CT scan revealed a large amount of peripancreatic inflammatory changes consistent with pancreatitis. Reason For Visit: ACUTE PANCREATITIS,ETOH ABUSE Physical Exam Vital Signs: Temp Pulse Resp BP Pulse Ox 98.0 F 77 16 138/87 H 97 06/22/18 07:37 06/22/18 09:25 06/22/18 09:25 06/22/18 07:37 06/22/18 09:25 Intake & Output 06/21/18 06/22/18 06/23/18 06:59 06:59 06:59 Intake Total 3000 100 Output Total 0 Balance 3000 100 Weight 62.1 kg General appearance: PRESENT: no acute distress, thin Head exam: PRESENT: atraumatic, normocephalic Eye exam: PRESENT: conjunctiva pink, EOMI, PERRLA. ABSENT: scleral icterus Ear exam: PRESENT: normal external ear exam Mouth exam: PRESENT: moist, tongue midline Neck exam: ABSENT: carotid bruit, JVD, lymphadenopathy, thyromegaly Respiratory exam: PRESENT: clear to auscultation enrrique. ABSENT: rales, rhonchi, wheezes Cardiovascular exam: PRESENT: RRR. ABSENT: diastolic murmur, rubs, systolic murmur Pulses: PRESENT: normal dorsalis pedis pul Vascular exam: PRESENT: normal capillary refill GI/Abdominal exam: PRESENT: normal bowel sounds, soft, tenderness - Left lower quadrant. ABSENT: distended, guarding, mass, organolmegaly, rebound Rectal exam: PRESENT: deferred Extremities exam: PRESENT: full ROM. ABSENT: calf tenderness, clubbing, pedal edema Neurological exam: PRESENT: alert, awake, oriented to person, oriented to place , oriented to time, oriented to situation, CN II-XII grossly intact, other - No asterixis. ABSENT: motor sensory deficit Psychiatric exam: PRESENT: appropriate affect, normal mood. ABSENT: homicidal ideation, suicidal ideation Skin exam: PRESENT: dry, intact, warm. ABSENT: cyanosis, rash Results Laboratory Results: 06/22/18 04:04 06/22/18 04:04 06/22/18 06/22/18 06/22/18 01:08 04:04 04:04 WBC 5.1 RBC 3.97 Hgb 12.0 Hct 35.5 L MCV 89 MCH 30.2 MCHC 33.8 RDW 17.4 H Plt Count 125 L Sodium 138.4 Potassium 4.0 Chloride 102 Carbon Dioxide 22 Anion Gap 14 BUN 8 Creatinine 0.61 Est GFR ( Amer) > 60 Est GFR (Non-Af Amer) > 60 Glucose 196 H Calcium 8.5 Phosphorus 3.0 Magnesium 1.1 L* Total Bilirubin 0.7 AST 105 H ALT 55 H Alkaline Phosphatase 84 Total Protein 6.7 Albumin 3.3 L Lipase 4805.9 H TSH Urine Color MARY Urine Appearance CLEAR Urine pH 5.0 Ur Specific [place] 1.042 Urine Protein NEGATIVE Urine Glucose (UA) NEGATIVE Urine Ketones TRACE H Urine Blood NEGATIVE Urine Nitrite POSITIVE H Ur Leukocyte Esterase NEGATIVE Urine WBC (Auto) 1 Urine RBC (Auto) 2 06/22/18 04:04 WBC RBC Hgb Hct MCV MCH MCHC RDW Plt Count Sodium Potassium Chloride Carbon Dioxide Anion Gap BUN Creatinine Est GFR ( Amer) Est GFR (Non-Af Amer) Glucose Calcium Phosphorus Magnesium Total Bilirubin AST ALT Alkaline Phosphatase Total Protein Albumin Lipase TSH 2.43 Urine Color Urine Appearance Urine pH Ur Specific [place] Urine Protein Urine Glucose (UA) Urine Ketones Urine Blood Urine Nitrite Ur Leukocyte Esterase Urine WBC (Auto) Urine RBC (Auto) Impressions: Abdomen Ultrasound 06/21/18 14:56 IMPRESSION: No obvious stones noted. Exam terminated prior to completion because of patient's pain. . Chest X-Ray 06/21/18 16:12 IMPRESSION: NO ACUTE RADIOGRAPHIC FINDING IN THE CHEST. Abdomen/Pelvis CT 06/21/18 16:42 IMPRESSION: Large amount of peripancreatic inflammatory changes -left upper quadrant free fluid, correlate for pancreatitis. Assessment & Plan - Diagnosis (1) Acute alcoholic pancreatitis Qualifiers: Acute pancreatitis complication: unspecified Qualified Code(s): K85.20 - Alcohol induced acute pancreatitis without necrosis or infection Is this a current diagnosis for this admission?: Yes Plan: Continue management with supportive care and will follow lipase levels (2) Alcohol abuse Is this a current diagnosis for this admission?: Yes Plan: Currently no evidence of withdrawal however patient is really not out of the window yet. Will continue to monitor with judicious use of benzodiazepines as necessary - Time Time Spent with patient: 15-24 minutes Medications reviewed and adjusted accordingly: Yes Anticipated discharge: Home Within: within 72 hours - Inpatient Certification Based on my medical assessment, after consideration of the patient's comorbidities, presenting symptoms, or acuity I expect that the services needed warrant INPATIENT care.: Yes Medical Necessity: Need For IV Fluids, Need for Pain Control
[2018-06-22 13:12] LABS: ANION GAP 11 (5-19); BLOOD UREA NITROGEN 10 mg/dL (7-20); CALCIUM 8.6 mg/dL (8.4-10.2); CARBON DIOXIDE 26 mmol/L (22-30); CHLORIDE 100 mmol/L (98-107); GLUCOSE 132 mg/dL (75-110); POTASSIUM 4.2 mmol/L (3.6-5.0); SODIUM 136.6 mmol/L (137-145)
[2018-06-23] MEDS: LORAZEPAM INJ 2 MG/1 ML VIAL IV PRN ×5 (00:09→17:06)
[2018-06-23] MEDS: ONDANSETRON HCL INJ/PF 4 MG/2 ML SDV IV PRN (01:07)
[2018-06-23] MEDS: HYDROMORPHONE HCL INJ/PF 2 MG/ML AMPULE IV PRN ×9 (03:33→21:04)
[2018-06-23 05:16] LABS: ABSOLUTE LYMPHOCYTES (AUTO) 0.8 10^3/uL (0.5-4.7); ABSOLUTE MONOCYTES (AUTO) 0.5 10^3/uL (0.1-1.4); BASOPHILS % (AUTO) 0.2 % (0-2); EOSINOPHILS % (AUTO) 0.2 % (0-6); HEMATOCRIT 35.2 % (36.0-47.0); HEMOGLOBIN 11.9 g/dL (12.0-15.5); LYMPHOCYTES % (AUTO) 11.2 % (13-45); MEAN CORPUSCULAR HEMOGLOBIN 30.2 pg (27.0-33.4); MEAN CORPUSCULAR HGB CONC 33.8 g/dL (32.0-36.0); MEAN CORPUSCULAR VOLUME 89 fl (80-97); PLATELET COUNT 123 10^3/uL (150-450); RED BLOOD COUNT 3.94 10^6/uL (3.72-5.28); RED CELL DISTRIBUTION WIDTH 16.9 % (11.5-14.0); SEGMENTED NEUTROPHILS % (AUTO) 81.4 % (42-78); TOTAL CELLS COUNTED % (AUTO) 100 %; WHITE BLOOD COUNT 7.3 10^3/uL (4.0-10.5)
[2018-06-23 05:42] LABS: ALANINE AMINOTRANSFERASE 44 U/L (9-52); ALBUMIN 3.3 g/dL (3.5-5.0); ALKALINE PHOSPHATASE 76 U/L (38-126); ANION GAP 10 (5-19); ASPARTATE AMINO TRANSFERASE 63 U/L (14-36); BILIRUBIN,DIRECT 0.3 mg/dL (0.0-0.4); BILIRUBIN,TOTAL 0.7 mg/dL (0.2-1.3); BLOOD UREA NITROGEN 5 mg/dL (7-20); CALCIUM 8.4 mg/dL (8.4-10.2); CARBON DIOXIDE 26 mmol/L (22-30); CHLORIDE 103 mmol/L (98-107); GLUCOSE 110 mg/dL (75-110); POTASSIUM 3.5 mmol/L (3.6-5.0); SODIUM 138.7 mmol/L (137-145); TOTAL PROTEIN 6.4 g/dL (6.3-8.2)
[2018-06-23 05:53] LABS: LIPASE 2935.2 U/L (23-300)
[2018-06-23] MEDS: DEXTROSE 5%-NORMAL SALINE 1,000 ML IV PRN ×3 (05:57→23:34)
[2018-06-23] MEDS: FAMOTIDINE INJ/PF 20 MG/2 ML SDV IV SCH ×2 (10:09→21:04)
[2018-06-23] MEDS ORDERED: HYDROMORPHONE HCL INJ/PF 2 MG/ML AMPULE IV PRN (10:29)
[2018-06-23] MEDS ORDERED: NICOTINE 21 MG/24 HR PATCH.TD24 TD ONE (11:00)
[2018-06-23] MEDS: ENOXAPARIN SODIUM INJ 40 MG/0.4 ML DISP.SYRIN SUBCUT SCH (11:43)
--- NOTE | 2018-06-23 12:19 | PDOC PROGRESS REPORT ---
Subjective Progress Note for:: 06/23/18 Subjective:: The patient is an extremely pleasant 43-year-old female who presented to the emergency room with increased abdominal pain associated with nausea and vomiting. She was found on imaging studies to have evidence of acute pancreatitis. She drinks approximately 1/5 of liquor daily. She was admitted to the hospital and started on aggressive IV fluids. She currently is n.p.o. Her lipase level is trending downwards but still above 2000. Today she complains of continued pain. She still requiring parenteral narcotics. She states the pain is quite sharp and constant. The IV narcotics help but did not last long enough. She denies fever or shaking chills. No chest pain, shortness of breath or cough. She has had no further issues with nausea or vomiting but she has not eaten. She has not had a bowel movement today. She has no urinary complaints. Reason For Visit: ACUTE PANCREATITIS,ETOH ABUSE Physical Exam Vital Signs: Temp Pulse Resp BP Pulse Ox 98.2 F 76 16 137/96 H 96 06/23/18 07:41 06/23/18 10:16 06/23/18 10:16 06/23/18 07:41 06/23/18 10:16 Intake & Output 06/22/18 06/23/18 06/24/18 06:59 06:59 06:59 Intake Total 3000 3100 Output Total 0 Balance 3000 3100 Weight 62.1 kg 58.5 kg General appearance: PRESENT: no acute distress, thin, well-developed Head exam: PRESENT: atraumatic, normocephalic Mouth exam: PRESENT: moist, tongue midline Respiratory exam: PRESENT: clear to auscultation enrrique. ABSENT: rales, rhonchi, wheezes Cardiovascular exam: PRESENT: RRR. ABSENT: diastolic murmur, rubs, systolic murmur GI/Abdominal exam: PRESENT: normal bowel sounds, soft, tenderness Rectal exam: PRESENT: deferred Extremities exam: PRESENT: full ROM. ABSENT: calf tenderness, clubbing, pedal edema Musculoskeletal exam: PRESENT: ambulatory Neurological exam: PRESENT: alert, awake, oriented to person, oriented to place , oriented to time, oriented to situation, CN II-XII grossly intact. ABSENT: motor sensory deficit Psychiatric exam: PRESENT: appropriate affect, normal mood. ABSENT: homicidal ideation, suicidal ideation Skin exam: PRESENT: dry, intact, warm. ABSENT: cyanosis, rash Results Laboratory Results: 06/23/18 04:35 06/23/18 04:35 06/22/18 06/23/18 06/23/18 12:24 04:35 04:35 WBC 7.3 RBC 3.94 Hgb 11.9 L Hct 35.2 L MCV 89 MCH 30.2 MCHC 33.8 RDW 16.9 H Plt Count 123 L Seg Neutrophils % 81.4 H Lymphocytes % 11.2 L Monocytes % 7.0 Eosinophils % 0.2 Basophils % 0.2 Absolute Neutrophils 6.0 Absolute Lymphocytes 0.8 Absolute Monocytes 0.5 Absolute Eosinophils 0.0 Absolute Basophils 0.0 Sodium 136.6 L 138.7 Potassium 4.2 3.5 L Chloride 100 103 Carbon Dioxide 26 26 Anion Gap 11 10 BUN 10 5 L Creatinine 0.59 0.53 Est GFR ( Amer) > 60 > 60 Est GFR (Non-Af Amer) > 60 > 60 Glucose 132 H 110 Calcium 8.6 8.4 Magnesium 2.2 D Total Bilirubin 0.7 AST 63 H ALT 44 Alkaline Phosphatase 76 Total Protein 6.4 Albumin 3.3 L Lipase 2935.2 H Impressions: Abdomen Ultrasound 06/21/18 14:56 IMPRESSION: No obvious stones noted. Exam terminated prior to completion because of patient's pain. . Chest X-Ray 06/21/18 16:12 IMPRESSION: NO ACUTE RADIOGRAPHIC FINDING IN THE CHEST. Abdomen/Pelvis CT 06/21/18 16:42 IMPRESSION: Large amount of peripancreatic inflammatory changes -left upper quadrant free fluid, correlate for pancreatitis. Assessment & Plan - Diagnosis (1) Acute alcoholic pancreatitis Qualifiers: Acute pancreatitis complication: unspecified Qualified Code(s): K85.20 - Alcohol induced acute pancreatitis without necrosis or infection Is this a current diagnosis for this admission?: Yes Plan: The patient's lipase level is trending down but is still above 2000. Continue n.p.o. status. She will also continue IV Dilaudid and I am changing the frequency to every 2 hours. She will have a lipase level drawn in the morning. (2) Alcohol abuse Is this a current diagnosis for this admission?: Yes Plan: At this point no evidence of alcohol withdrawal. I did discuss the need for absolute abstinence in light of her severe pancreatitis. She agrees. (3) Hyponatremia Is this a current diagnosis for this admission?: Yes Plan: Likely due to her alcohol use. Resolved at this point. (4) Hypokalemia Is this a current diagnosis for this admission?: Yes Plan: I will give her a potassium rider today. She will have a chemistry panel checked in the morning. (5) Elevated liver function tests Is this a current diagnosis for this admission?: Yes Plan: She had elevated transaminases at the time of admission which are trending downwards. (6) Hyperglycemia Is this a current diagnosis for this admission?: Yes Plan: This is likely reactive to her acute pancreatitis. However I will get a hemoglobin A1c in the morning to be on the safe side. (7) UTI (urinary tract infection) Is this a current diagnosis for this admission?: Yes Plan: Unfortunately her urine was not sent for culture. We will obtain a urine culture this morning. After we obtain the urine culture we will start her on IV Rocephin. This will be the first day of treatment. Her initial urinalysis revealed leukocytes as well as was nitrite positive (8) Hypertension Is this a current diagnosis for this admission?: Yes Plan: Stable. (9) Depression Is this a current diagnosis for this admission?: Yes Plan: Currently her Zoloft is on hold (10) Mechanical deep vein thrombosis (DVT) prophylaxis in place Is this a current diagnosis for this admission?: Yes Plan: I am going to place SCDs on the patient and hold her Lovenox due to her thrombocytopenia. - Time Time Spent with patient: 35 or more minutes - Inpatient Certification Medical Necessity: Need For IV Fluids, Need for IV Antibiotics - Inpatient hospitalization remains necessary. The patient has evidence of acute pancreatitis. She also has a urinary tract infection. She is requiring parenteral fluids as well as narcotics. She is currently n.p.o. Her lipase level is still above 2000. I suspect she will be in the hospital for several more days., Other
[2018-06-23] MEDS ORDERED: CEFTRIAXONE 1 GM/D5W RTU 50 ML IV SCH (13:00)
[2018-06-23] MEDS: CEFTRIAXONE SODIUM 1,000 MG in DEXTROSE 5%-WATER 50 ML IV SCH (15:46)
[2018-06-23 16:31] LABS: APPEARANCE,URINE SLIGHTLY-CLOUDY; BILIRUBIN,URINE NEGATIVE (NEGATIVE); COLOR,URINE YELLOW; GLUCOSE, URINE NEGATIVE (NEGATIVE); KETONES,URINE NEGATIVE (NEGATIVE); LEUKOCYTE ESTERASE,URINE NEGATIVE (NEGATIVE); NITRITE,URINE NEGATIVE (NEGATIVE); PROTEIN,URINE NEGATIVE (NEGATIVE); URINE SPECIFIC GRAVITY 1.009
[2018-06-24] MEDS: HYDROMORPHONE HCL INJ/PF 2 MG/ML AMPULE IV PRN ×8 (00:08→23:02)
[2018-06-24] MEDS: LORAZEPAM INJ 2 MG/1 ML VIAL IV PRN ×2 (02:12→23:01)
[2018-06-24 04:40] LABS: ABSOLUTE EOSINOPHILS # (AUTO) 0.1 10^3/uL (0.0-0.6); ABSOLUTE LYMPHOCYTES (AUTO) 1.1 10^3/uL (0.5-4.7); ABSOLUTE MONOCYTES (AUTO) 0.4 10^3/uL (0.1-1.4); ABSOLUTE NEUT (AUTO) 4.1 10^3/uL (1.7-8.2); BASOPHILS % (AUTO) 0.2 % (0-2); EOSINOPHILS % (AUTO) 1.4 % (0-6); LYMPHOCYTES % (AUTO) 19.8 % (13-45); MEAN CORPUSCULAR HGB CONC 33.3 g/dL (32.0-36.0); MEAN CORPUSCULAR VOLUME 90 fl (80-97); MONOCYTES % (AUTO) 6.5 % (3-13); PLATELET COUNT 107 10^3/uL (150-450); RED BLOOD COUNT 3.99 10^6/uL (3.72-5.28); RED CELL DISTRIBUTION WIDTH 17.5 % (11.5-14.0); SEGMENTED NEUTROPHILS % (AUTO) 72.1 % (42-78); TOTAL CELLS COUNTED % (AUTO) 100 %; WHITE BLOOD COUNT 5.6 10^3/uL (4.0-10.5)
[2018-06-24] MEDS: DEXTROSE 5%-NORMAL SALINE 1,000 ML IV PRN ×3 (04:46→20:10)
[2018-06-24 05:03] LABS: ALANINE AMINOTRANSFERASE 40 U/L (9-52); ALBUMIN 3.4 g/dL (3.5-5.0); ALKALINE PHOSPHATASE 74 U/L (38-126); ANION GAP 12 (5-19); ASPARTATE AMINO TRANSFERASE 44 U/L (14-36); BILIRUBIN,DIRECT 0.3 mg/dL (0.0-0.4); BILIRUBIN,TOTAL 0.8 mg/dL (0.2-1.3); BLOOD UREA NITROGEN 3 mg/dL (7-20); CALCIUM 8.8 mg/dL (8.4-10.2); CARBON DIOXIDE 27 mmol/L (22-30); CHLORIDE 100 mmol/L (98-107); GLUCOSE 92 mg/dL (75-110); LIPASE 1325.7 U/L (23-300); POTASSIUM 3.6 mmol/L (3.6-5.0); SODIUM 138.8 mmol/L (137-145); TOTAL PROTEIN 6.7 g/dL (6.3-8.2)
[2018-06-24 08:44] LABS: HEMATOCRIT 34.9 % (36.0-47.0); HEMOGLOBIN 11.7 g/dL (12.0-15.5); MEAN CORPUSCULAR HEMOGLOBIN 29.8 pg (27.0-33.4); MEAN CORPUSCULAR HGB CONC 33.4 g/dL (32.0-36.0); MEAN CORPUSCULAR VOLUME 89 fl (80-97); PLATELET COUNT 103 10^3/uL (150-450); RED BLOOD COUNT 3.91 10^6/uL (3.72-5.28); RED CELL DISTRIBUTION WIDTH 17.3 % (11.5-14.0); WHITE BLOOD COUNT 6.2 10^3/uL (4.0-10.5)
[2018-06-24] MEDS: NICOTINE 21 MG/24 HR PATCH.TD24 TD SCH (11:05)
[2018-06-24] MEDS: CEFTRIAXONE SODIUM 1,000 MG in DEXTROSE 5%-WATER 50 ML IV SCH (11:06)
[2018-06-24] MEDS: FAMOTIDINE INJ/PF 20 MG/2 ML SDV IV SCH ×2 (11:06→23:01)
--- NOTE | 2018-06-24 19:03 | PDOC PROGRESS REPORT ---
Subjective Progress Note for:: 06/24/18 Subjective:: The patient is an extremely pleasant 43-year-old female who presented to the emergency room with increased abdominal pain associated with nausea and vomiting. She was found on imaging studies to have evidence of acute pancreatitis. She drinks approximately 1/5 of liquor daily. She was admitted to the hospital and started on aggressive IV fluids. Her lipase level is trending downwards and is down to 1300 today.. Today she complains of continued pain. She still requiring parenteral narcotics but not as frequently.. She states the pain is quite sharp and constant. She is requesting a trial of clear liquids and states she just needs to have something in her mouth other than ice chips. She denies fever or shaking chills. No chest pain, shortness of breath or cough. She has had no further issues with nausea or vomiting but she has not eaten. She has not had a bowel movement today. She has no urinary complaints. Reason For Visit: ACUTE PANCREATITIS,ETOH ABUSE Physical Exam Vital Signs: Temp Pulse Resp BP Pulse Ox 98.2 F 80 18 139/94 H 100 06/24/18 15:42 06/24/18 15:42 06/24/18 15:42 06/24/18 15:42 06/24/18 15:42 Intake & Output 06/23/18 06/24/18 06/25/18 06:59 06:59 06:59 Intake Total 3100 2830 1050 Output Total 750 Balance 3100 2080 1050 Weight 58.5 kg 60.8 kg General appearance: PRESENT: mild distress, thin, well-developed Head exam: PRESENT: atraumatic, normocephalic Mouth exam: PRESENT: moist, tongue midline Respiratory exam: PRESENT: clear to auscultation enrrique. ABSENT: rales, rhonchi, wheezes Cardiovascular exam: PRESENT: RRR. ABSENT: diastolic murmur, rubs, systolic murmur GI/Abdominal exam: PRESENT: tenderness - She is quite tender to palpation with guarding across the left upper quadrant and epigastric area Rectal exam: PRESENT: deferred Extremities exam: PRESENT: full ROM. ABSENT: calf tenderness, clubbing, pedal edema Psychiatric exam: PRESENT: appropriate affect, normal mood. ABSENT: homicidal ideation, suicidal ideation Skin exam: PRESENT: dry, intact, warm. ABSENT: cyanosis, rash Results Laboratory Results: 06/24/18 08:14 06/24/18 04:16 06/24/18 06/24/18 06/24/18 04:16 04:16 08:14 WBC 5.6 6.2 RBC 3.99 3.91 Hgb 12.0 11.7 L Hct 36.0 34.9 L MCV 90 89 MCH 30.0 29.8 MCHC 33.3 33.4 RDW 17.5 H 17.3 H Plt Count 107 L 103 L Seg Neutrophils % 72.1 Lymphocytes % 19.8 Monocytes % 6.5 Eosinophils % 1.4 Basophils % 0.2 Absolute Neutrophils 4.1 Absolute Lymphocytes 1.1 Absolute Monocytes 0.4 Absolute Eosinophils 0.1 Absolute Basophils 0.0 Sodium 138.8 Potassium 3.6 Chloride 100 Carbon Dioxide 27 Anion Gap 12 BUN 3 L Creatinine 0.50 L Est GFR ( Amer) > 60 Est GFR (Non-Af Amer) > 60 Glucose 92 Calcium 8.8 Phosphorus Magnesium 1.6 Total Bilirubin 0.8 AST 44 H ALT 40 Alkaline Phosphatase 74 Total Protein 6.7 Albumin 3.4 L Lipase 1325.7 H 06/24/18 08:14 WBC RBC Hgb Hct MCV MCH MCHC RDW Plt Count Seg Neutrophils % Lymphocytes % Monocytes % Eosinophils % Basophils % Absolute Neutrophils Absolute Lymphocytes Absolute Monocytes Absolute Eosinophils Absolute Basophils Sodium Potassium Chloride Carbon Dioxide Anion Gap BUN Creatinine Est GFR ( Amer) Est GFR (Non-Af Amer) Glucose Calcium Phosphorus 3.2 Magnesium Total Bilirubin AST ALT Alkaline Phosphatase Total Protein Albumin Lipase Impressions: Abdomen Ultrasound 06/21/18 14:56 IMPRESSION: No obvious stones noted. Exam terminated prior to completion because of patient's pain. . Chest X-Ray 06/21/18 16:12 IMPRESSION: NO ACUTE RADIOGRAPHIC FINDING IN THE CHEST. Abdomen/Pelvis CT 06/21/18 16:42 IMPRESSION: Large amount of peripancreatic inflammatory changes -left upper quadrant free fluid, correlate for pancreatitis. Assessment & Plan - Diagnosis (1) Acute alcoholic pancreatitis Qualifiers: Acute pancreatitis complication: unspecified Qualified Code(s): K85.20 - Alcohol induced acute pancreatitis without necrosis or infection Is this a current diagnosis for this admission?: Yes Plan: The patient's lipase level is trending down but is still above 1300. We will try a trial of clear liquids. I have advised her that if she develops worsening pain that she should go back to n.p.o. She will also continue IV Dilaudid as needed. Once she is tolerating some p.o. intake she can be changed over to an oral regimen. She will have a lipase level drawn in the morning. (2) Alcohol abuse Is this a current diagnosis for this admission?: Yes Plan: At this point no evidence of alcohol withdrawal. I did discuss the need for absolute abstinence in light of her severe pancreatitis. She agrees. (3) Hyponatremia Is this a current diagnosis for this admission?: Yes Plan: Likely due to her alcohol use. Resolved at this point. (4) Hypokalemia Is this a current diagnosis for this admission?: Yes Plan: This was repleted yesterday. Her potassium level is normal today. She will have a chemistry panel drawn in the morning. (5) Elevated liver function tests Is this a current diagnosis for this admission?: Yes Plan: She had elevated transaminases at the time of admission which are trending downwards. (6) Hyperglycemia Is this a current diagnosis for this admission?: Yes Plan: This is likely reactive to her acute pancreatitis. However I will get a hemoglobin A1c in the morning to be on the safe side. (7) UTI (urinary tract infection) Is this a current diagnosis for this admission?: Yes Plan: She has gram-negative rods growing in her urine. She will continue IV Rocephin. This is day #2 of treatment. Urine culture has not yet finalized (8) Hypertension Is this a current diagnosis for this admission?: Yes Plan: Stable. (9) Depression Is this a current diagnosis for this admission?: Yes Plan: Currently her Zoloft is on hold (10) Mechanical deep vein thrombosis (DVT) prophylaxis in place Is this a current diagnosis for this admission?: Yes Plan: I am going to place SCDs on the patient and hold her Lovenox due to her thrombocytopenia. - Time Time Spent with patient: 25-34 minutes - Inpatient Certification Medical Necessity: Need For IV Fluids, Need for IV Antibiotics - Inpatient hospitalization remains necessary. The patient still has acute pancreatitis. She is requiring aggressive IV fluids. She currently is receiving IV antibiotics as well. We are going to try a trial of clear liquids. I suspect she will be in the hospital for the next couple of days as we try to advance her diet., Other
[2018-06-25] MEDS: HYDROMORPHONE HCL INJ/PF 2 MG/ML AMPULE IV PRN ×7 (02:48→19:44)
[2018-06-25] MEDS: DEXTROSE 5%-NORMAL SALINE 1,000 ML IV PRN ×3 (02:49→17:20)
[2018-06-25 05:03] LABS: ANION GAP 10 (5-19); BLOOD UREA NITROGEN 3 mg/dL (7-20); CALCIUM 9.3 mg/dL (8.4-10.2); CARBON DIOXIDE 28 mmol/L (22-30); CHLORIDE 101 mmol/L (98-107); GLUCOSE 97 mg/dL (75-110); LIPASE 809.8 U/L (23-300); POTASSIUM 3.5 mmol/L (3.6-5.0); SODIUM 139.4 mmol/L (137-145)
[2018-06-25] MEDS: LORAZEPAM INJ 2 MG/1 ML VIAL IV PRN ×2 (07:41→18:34)
[2018-06-25] MEDS: NICOTINE 21 MG/24 HR PATCH.TD24 TD SCH (10:16)
[2018-06-25] MEDS: FAMOTIDINE INJ/PF 20 MG/2 ML SDV IV SCH (10:18)
[2018-06-25] MEDS: CEFTRIAXONE SODIUM 1,000 MG in DEXTROSE 5%-WATER 50 ML IV SCH (11:36)
--- NOTE | 2018-06-25 14:40 | Progress Note ---
Provider Note Provider Note: ID Consult Note Asked to review patient's chart by Pharmacy. Pt not seen or examined. Ms Torres is a 43 year old woman with heavy daily alcohol intake who had p/w acute onset of abdominal pain with N&V and was admitted on 06/21/18 with pancreatitis. No urinary complaints were noted. She has had abdominal pain on exam that has been noted to be greater on the left side. Her lipase and LFTs were elevated. Her CT scan showed a large amount of peripancreatic inflammatory changes with some LUQ free fluid. On 06/22 and 06/23 urinalysis was sent that showed 0 or 1 WBCs/hpf, no leukocyte esterase and positive nitrite on 06/21. The urine culture grew >100k cfu E coli. Rocephin was started. Impression/Recommendations Asymptomatic bacteriuria - Urinalysis with bacteriuria, pyuria or nitrites does not establish diagnosis of a urinary tract infection. Typical irritative urinary symptoms (dysuria, suprapubic pain or tenderness, urinary urgency) is necessary for the diagnosis of a UTI. - Asymptomatic bacteriuria is not an indication for antibiotic therapy except in patients and those undergoing invasive procedures with mucosal bleeding anticipated. Otherwise it has not been shown to reduce incidence of symptomatic UTI and instead is only associated with adverse events. - Recommend discontinuing Rocephin. Carlos Cruz MD [facility] pager [phone]
--- NOTE | 2018-06-25 18:32 | PDOC PROGRESS REPORT ---
Subjective Progress Note for:: 06/25/18 Subjective:: 43 years old white female who is alcohol presents with his acute alcoholic pancreatitis She has tolerating clears so far and doing well She is continued on IV fluids Pain is better controlled Reason For Visit: ACUTE PANCREATITIS,ETOH ABUSE Physical Exam Vital Signs: Temp Pulse Resp BP Pulse Ox 98.0 F 72 16 143/91 H 100 06/25/18 15:45 06/25/18 15:45 06/25/18 15:45 06/25/18 15:45 06/25/18 15:45 Intake & Output 06/24/18 06/25/18 06/26/18 06:59 06:59 06:59 Intake Total 2830 3048 3234 Output Total 750 Balance 2080 3048 3234 Weight 134 lb 0.657 oz 130 lb 4.691 oz Exam: Patient no acute distress Alert oriented to time place person No anxiety or depression Head atraumatic normocephalic Pupils are equal reactive Regular rate and rhythm Lungs clear no distress Abdomen was mild to moderate epigastric tenderness nondistended Neurological exam unremarkable Results Laboratory Results: 06/24/18 08:14 06/25/18 04:12 06/25/18 04:12 Sodium 139.4 Potassium 3.5 L Chloride 101 Carbon Dioxide 28 Anion Gap 10 BUN 3 L Creatinine 0.50 L Est GFR ( Amer) > 60 Est GFR (Non-Af Amer) > 60 Glucose 97 Calcium 9.3 Magnesium 1.6 Lipase 809.8 H 06/23/18 15:20 Clean Catch Midstream Urine Culture - Final Escherichia Coli Impressions: Abdomen Ultrasound 06/21/18 14:56 IMPRESSION: No obvious stones noted. Exam terminated prior to completion because of patient's pain. . Chest X-Ray 06/21/18 16:12 IMPRESSION: NO ACUTE RADIOGRAPHIC FINDING IN THE CHEST. Abdomen/Pelvis CT 06/21/18 16:42 IMPRESSION: Large amount of peripancreatic inflammatory changes -left upper quadrant free fluid, correlate for pancreatitis. Assessment & Plan - Diagnosis (1) Acute alcoholic pancreatitis Qualifiers: Acute pancreatitis complication: unspecified Qualified Code(s): K85.20 - Alcohol induced acute pancreatitis without necrosis or infection Is this a current diagnosis for this admission?: Yes Plan: Seems to be improving and responding to treatment Continue IV fluids and pain medications Advance diet and monitor clinically (2) Alcohol abuse Is this a current diagnosis for this admission?: Yes Plan: Monitor for alcohol withdrawal syndrome Patient was counseled (3) Elevated liver function tests Is this a current diagnosis for this admission?: Yes Plan: Improving Monitor (4) Hypertension Is this a current diagnosis for this admission?: Yes Plan: Pressure stable continue to monitor continue current medication (5) Hypokalemia Is this a current diagnosis for this admission?: Yes Plan: Resolved (6) Hyponatremia Is this a current diagnosis for this admission?: Yes Plan: Resolved
[2018-06-26] MEDS: LORAZEPAM INJ 2 MG/1 ML VIAL IV PRN (00:05)
[2018-06-26] MEDS: FAMOTIDINE INJ/PF 20 MG/2 ML SDV IV SCH ×2 (00:06→09:30)
[2018-06-26] MEDS: HYDROMORPHONE HCL INJ/PF 2 MG/ML AMPULE IV PRN ×5 (00:06→14:28)
[2018-06-26] MEDS: DEXTROSE 5%-NORMAL SALINE 1,000 ML IV PRN ×3 (00:08→14:28)
[2018-06-26 05:04] LABS: ABSOLUTE EOSINOPHILS # (AUTO) 0.2 10^3/uL (0.0-0.6); ABSOLUTE LYMPHOCYTES (AUTO) 0.9 10^3/uL (0.5-4.7); ABSOLUTE MONOCYTES (AUTO) 0.6 10^3/uL (0.1-1.4); BASOPHILS % (AUTO) 0.9 % (0-2); EOSINOPHILS % (AUTO) 5.8 % (0-6); HEMATOCRIT 33.3 % (36.0-47.0); HEMOGLOBIN 11.1 g/dL (12.0-15.5); MEAN CORPUSCULAR HEMOGLOBIN 30.1 pg (27.0-33.4); MEAN CORPUSCULAR HGB CONC 33.4 g/dL (32.0-36.0); MEAN CORPUSCULAR VOLUME 90 fl (80-97); PLATELET COUNT 113 10^3/uL (150-450); RED BLOOD COUNT 3.69 10^6/uL (3.72-5.28); RED CELL DISTRIBUTION WIDTH 17.3 % (11.5-14.0); SEGMENTED NEUTROPHILS % (AUTO) 53.3 % (42-78); TOTAL CELLS COUNTED % (AUTO) 100 %; WHITE BLOOD COUNT 3.7 10^3/uL (4.0-10.5)
[2018-06-26 05:27] LABS: ALANINE AMINOTRANSFERASE 28 U/L (9-52); ALBUMIN 3.3 g/dL (3.5-5.0); ALKALINE PHOSPHATASE 63 U/L (38-126); ANION GAP 11 (5-19); ASPARTATE AMINO TRANSFERASE 36 U/L (14-36); BILIRUBIN,DIRECT 0.3 mg/dL (0.0-0.4); BILIRUBIN,TOTAL 0.7 mg/dL (0.2-1.3); BLOOD UREA NITROGEN 4 mg/dL (7-20); CALCIUM 8.4 mg/dL (8.4-10.2); CARBON DIOXIDE 26 mmol/L (22-30); CHLORIDE 102 mmol/L (98-107); GLUCOSE 111 mg/dL (75-110); POTASSIUM 3.1 mmol/L (3.6-5.0); SODIUM 139.1 mmol/L (137-145); TOTAL PROTEIN 6.6 g/dL (6.3-8.2)
[2018-06-26] MEDS: NICOTINE 21 MG/24 HR PATCH.TD24 TD SCH (09:30)
[2018-06-26] MEDS: CEFTRIAXONE SODIUM 1,000 MG in DEXTROSE 5%-WATER 50 ML IV SCH (11:19)
[2018-06-26] MEDS ORDERED: POTASSIUM CHLORIDE 20 MEQ/15 ML UDCUP PO ONE (14:00)
--- NOTE | 2018-06-26 16:04 | PDOC DISCHARGE SUMMARY ---
General - Admit/Disc Date/PCP Admission Date/Primary Care Provider: 06/21/18 18:03 MARK GARCIA Discharge Date: 06/26/18 - Discharge Diagnosis (1) Acute alcoholic pancreatitis Is this a current diagnosis for this admission?: Yes (2) Alcohol abuse Is this a current diagnosis for this admission?: Yes (3) Elevated liver function tests Is this a current diagnosis for this admission?: Yes (4) Hypertension Is this a current diagnosis for this admission?: Yes (5) Hypokalemia Is this a current diagnosis for this admission?: Yes (6) Hyponatremia Is this a current diagnosis for this admission?: Yes - Additional Information Resuscitation Status: Full Code Discharge Diet: As Tolerated Discharge Activity: Activity As Tolerated Prescriptions: Hydrocodone Bit/Acetaminophen [Hydrocodon-Acetaminophen 5-325] 1 each PO Q6 PRN 3 Days #12 tablet PRN Reason: Home Medications: Amlodipine Besylate [Norvasc 5 mg Tablet] 5 mg PO DAILY 06/22/18 Diclofenac Sodium [Voltaren] 75 mg PO BIDP PRN 06/22/18 Sertraline HCl [Zoloft 50 mg Tablet] 50 mg PO DAILY 06/22/18 Hydrocodone Bit/Acetaminophen [Hydrocodon-Acetaminophen 5-325] 1 each PO Q6 PRN 3 Days #12 tablet 06/26/18 Lorazepam [Ativan Inj 2 mg/1 ml Vial] 1 mg IV Q4HP PRN vial 06/26/18 Nicotine [Nicoderm 21 mg/24 Hr Transderm Patch] 1 each TD DAILY patch.[id number] 02/08 History of Present Illness History of Present Illness: CALISTA SLADE is a 43 year old female Who presents to the emergency room of abdominal pain nausea and vomiting. Workup was positive for acute alcoholic pancreatitis. Hospital Course Hospital Course: Patient was treated with aggressive IV fluid hydration and IV pain medications. She was initially n.p.o. His diet was advanced very slowly and patient tolerated diet well. Pain was controlled and she did not suffer from any alcohol withdrawal symptoms. She can keep up food and pain is improved and she is stable for discharge. Physical Exam Vital Signs: Temp Pulse Resp BP Pulse Ox 98.0 F 79 16 129/82 H 100 06/26/18 11:11 06/26/18 14:00 06/26/18 11:11 06/26/18 11:11 06/26/18 11:11 Intake & Output 06/25/18 06/26/18 06/27/18 06:59 06:59 06:59 Intake Total 3048 5234 1530 Balance 3048 5234 1530 Weight 130 lb 4.691 oz 129 lb 13.636 oz General appearance: PRESENT: no acute distress, well-developed, well-nourished Head exam: PRESENT: atraumatic Eye exam: ABSENT: conjunctival injection Mouth exam: PRESENT: neck supple, tongue midline Throat exam: ABSENT: post pharyngeal erythema Neck exam: ABSENT: JVD, tenderness, thyromegaly Respiratory exam: PRESENT: clear to auscultation enrrique. ABSENT: accessory muscle use Cardiovascular exam: PRESENT: RRR Pulses: ABSENT: normal carotid pulses GI/Abdominal exam: PRESENT: normal bowel sounds, tenderness. ABSENT: ascites Neurological exam: PRESENT: alert, awake, oriented to person, oriented to place , oriented to time, oriented to situation, CN II-XII grossly intact. ABSENT: motor sensory deficit Results Laboratory Results: 06/26/18 04:37 06/26/18 04:37 06/26/18 06/26/18 04:37 04:37 WBC 3.7 L RBC 3.69 L Hgb 11.1 L Hct 33.3 L MCV 90 MCH 30.1 MCHC 33.4 RDW 17.3 H Plt Count 113 L Seg Neutrophils % 53.3 Lymphocytes % 25.0 Monocytes % 15.0 H Eosinophils % 5.8 Basophils % 0.9 Absolute Neutrophils 2.0 Absolute Lymphocytes 0.9 Absolute Monocytes 0.6 Absolute Eosinophils 0.2 Absolute Basophils 0.0 Sodium 139.1 Potassium 3.1 L Chloride 102 Carbon Dioxide 26 Anion Gap 11 BUN 4 L Creatinine 0.52 Est GFR ( Amer) > 60 Est GFR (Non-Af Amer) > 60 Glucose 111 H Calcium 8.4 Total Bilirubin 0.7 AST 36 ALT 28 Alkaline Phosphatase 63 Total Protein 6.6 Albumin 3.3 L Lipase 554.0 H Impressions: Abdomen Ultrasound 06/21/18 14:56 IMPRESSION: No obvious stones noted. Exam terminated prior to completion because of patient's pain. . Chest X-Ray 06/21/18 16:12 IMPRESSION: NO ACUTE RADIOGRAPHIC FINDING IN THE CHEST. Abdomen/Pelvis CT 06/21/18 16:42 IMPRESSION: Large amount of peripancreatic inflammatory changes -left upper quadrant free fluid, correlate for pancreatitis. Qualifiers - * PATIENT BEING DISCHARGED WITH ANY OF THE FOLLOWING DIAGNOSIS: No Plan Time Spent: Greater than 30 Minutes
[2018-06-26 16:11] VITALS: BP 122/93
[2018-06-26] MEDS: ONDANSETRON HCL INJ/PF 4 MG/2 ML SDV IV PRN (16:19)
== END 2018-06-26 17:05 | disposition home or self-care (01) | DRG 439 ==
LOC: ER 14:20 → EH 18:03 → 3W 21:39
PROVIDERS: ADMIT Internal Medicine; ATTEND Internal Medicine
DX: K85.20 Alcohol induced acute pancreatitis without necrosis or infection (principal); E87.1 Hypo-osmolality and hyponatremia; N39.0 Urinary tract infection, site not specified; E87.6 Hypokalemia; I10 Essential (primary) hypertension; F17.210 Nicotine dependence, cigarettes, uncomplicated; R94.5 Abnormal results of liver function studies; R73.9 Hyperglycemia, unspecified; F32.9 Major depressive disorder, single episode, unspecified; F10.10 Alcohol abuse, uncomplicated; E03.9 Hypothyroidism, unspecified; B96.20 Unspecified Escherichia coli [E. coli] as the cause of diseases classified elsewhere; Z82.49 Family history of ischemic heart disease and other diseases of the circulatory system; Z82.61 Family history of arthritis; Z91.013 Allergy to seafood; Z88.6 Allergy status to analgesic agent; Z90.49 Acquired absence of other specified parts of digestive tract
CPT/HCPCS: 36415; 71046; 74177; 76705; 80048; 80053; 80076; 80307; 81001; 82962; 83036; 83690; 83735; 84100; 84443; 84702; 85025; 85027; 87086; 87088; 87186; 93005; 93010; 96361; 96374; 96375; 99285; J0696; J1170; J1200; J2060; J2270; J2405; J2930; J3475; J3490; J7030; S0028